=== PATIENT | male | born 1990 | race Two or more races ===

== ENCOUNTER 2017-02-08 16:46 | Emergency (ER) | payer BC ==
[~2017-02-08] VITALS: Ht 172.7 cm; Wt 108.9 kg
[2017-02-08 16:50] VITALS: BP 133/80
[2017-02-08] MEDS ORDERED: TDAP [DIPH/PERTUSSIS/TET] 0.5 ML VIAL IM ONE ×2 (17:01→17:30)
== END 2017-02-08 17:16 | disposition home or self-care (01) ==
LOC: ER 16:48
DX: S61.250A Open bite of right index finger without damage to nail, initial encounter (principal); Z98.890 Other specified postprocedural states; W54.0XXA Bitten by dog, initial encounter; Y93.89 Activity, other specified; Y92.89 Other specified places as the place of occurrence of the external cause; Y99.9 Unspecified external cause status
CPT/HCPCS: 90471; 90715; 99283; A4606; Z7610